=== PATIENT | male | born 1960 | race African-American/Black ===

== ENCOUNTER 2023-05-19 21:46 | Emergency (ER) | payer OTHER ==
[~2023-05-19] VITALS: Ht 185.4 cm; Wt 83.9 kg
[2023-05-19 22:00] VITALS: BP 155/99
[2023-05-19] MEDS ORDERED: PANT20 PO (22:05)
[2023-05-19] MEDS ORDERED: LEVOTHYROXINE75 MC8 PO (22:06)
[2023-05-19] MEDS ORDERED: PROBIOTIC1 EA14 PO (22:06)
== END 2023-05-20 00:17 | disposition home or self-care (01) ==
LOC: ER 21:46
DX: M25.551 Pain in right hip (principal); M25.511 Pain in right shoulder; M53.3 Sacrococcygeal disorders, not elsewhere classified; W10.9XXA Fall (on) (from) unspecified stairs and steps, initial encounter; Y92.22 Religious institution as the place of occurrence of the external cause
CPT/HCPCS: 72100; 73502; 96372; 99283-25; A9270; J1885